=== PATIENT | male | born 1935 | race Caucasian/White ===

== ENCOUNTER 2017-06-24 18:54 | Emergency (ER) | payer MEDICARE ==
[~2017-06-24 18:54] MED LIST: ASCORBIC ACID500 MG PO; B-12500 MCG PO; CALCIUM + VITA1 EACH PO; CHILDRENS CHEWA81 MG PO; COLACE100 MG PO; COZAAR25 MG PO; DITROPAN5 MG PO; ENULOSE10 GM/15 M PO; FEOSOL325 MG PO; FLOMAX0.4 MG PO; FOLIC ACID1 MG PO; LANTUS100 UNIT/1 SQ; LASIX20 MG PO; LEVAQUIN500 MG PO; LIPITOR10 MG PO; METOPROLOL TART25 MG PO; NORVASC5 MG PO; NOVOLOG100 UNIT/2 SQ; PAMELOR50 MG PO; PANTOPRAZOLE SO40 MG PO; PERCOCET 10-321 EACH PO; TRADJENTA5 MG PO; ZINC OXIDE28 GM TOP
[2017-06-24 19:43] LABS: BASO % 0.1 % (0.2-1.2); EOS # 0.1 10_X3_uL (0.0-0.5); EOS % 0.8 % (0.8-7.0); GRAN # 6.7 10_X3_uL (1.8-5.4); GRAN % 76.4 % (34.0-67.9); HEMATOCRIT 24.6 % (40-51); HEMOGLOBIN 8.9 g/dL (13.7-17.5); LYMPH % 11.3 % (21.8-53.1); MEAN CORPUSCULAR HGB CONC 36.2 g/dL (32.0-36.0); MEAN CORPUSCULAR VOLUME 85.7 fL (79-92); MEAN PLATELET VOLUME 8.7 fl (7.5-11.5); MONO % 11.4 % (5.3-12.2); PLATELET COUNT 175 x10_3/uL (163-337); RED BLOOD COUNT 2.87 x10_6/uL (4.6-6.1); RED CELL DISTRIBUTION WIDTH 11.6 % (11.6-14.4); WHITE BLOOD COUNT 8.8 x10_3/uL (4.2-9.1)
[2017-06-24 19:59] LABS: CALCIUM 8.5 mg/dL (8.7-10.7); POTASSIUM 4.5 mmol/L (3.5-5.1)
[2017-06-24 20:09] LABS: URINE BILIRUBIN NEGATIVE (NEGATIVE); URINE BLOOD TRACE (NEGATIVE); URINE GLUCOSE (UA) NORMAL (NORMAL); URINE KETONE NEGATIVE (NEGATIVE); URINE LEUKOCYTE ESTERASE 2+ (NEGATIVE); URINE NITRATE NEGATIVE (NEGATIVE); URINE PROTEIN 2+ (NEGATIVE); UROBILINOGEN NORMAL mg/dL (<1.0)
[2017-06-24 20:27] LABS: URINE BACTERIA 1+ (NONE SEEN); URINE WBC TNTC /[HPF] (0-3)
== END 2017-06-24 22:12 | disposition short-term general hospital (02) ==
LOC: ER 18:54
PROVIDERS: Internal Medicine
DX: A41.9 Sepsis, unspecified organism (principal); N39.0 Urinary tract infection, site not specified; E87.1 Hypo-osmolality and hyponatremia; J84.9 Interstitial pulmonary disease, unspecified; D64.9 Anemia, unspecified; N28.9 Disorder of kidney and ureter, unspecified; I44.7 Left bundle-branch block, unspecified; R07.9 Chest pain, unspecified; R06.02 Shortness of breath; E11.9 Type 2 diabetes mellitus without complications; I10 Essential (primary) hypertension
CPT/HCPCS: 36415; 71010; 80048; 81001; 82550; 82553; 83605; 85025; 87040; 87086; 93005; 96361; 96365; 99284; 99285-25